=== PATIENT | female | born 1985 | race Caucasian/White ===

== ENCOUNTER 2019-05-11 00:26 | Inpatient (IN) | payer SELFPAY ==
[2019-05-11] VITALS (42 sets, daily range): BP systolic 75–152; BP diastolic 36–77; PULSE 62–160; RESP 14–32; TEMP 36.1–37; O2SAT 94–100; BMI 22.4; BMI 23.1
--- NOTE | 2019-05-11 02:04 | ED.DCSUM_ITS ---
History of Present Illness Chief Complaint: Substance Abuse Narrative: This patient is a 34-year-old female who presents with narcotic withdrawal. She has been using fentanyl daily for about 2 months. Her last use was Wednesday. She complains of about 2 days of severe nausea and vomiting. She has been unable to tolerate anything by mouth. She also complains of crampy abdominal pain diarrhea sweats rhinorrhea. She complains of gooseflesh. She has a history of hepatitis C but denies any other medical history. Past Medical History - Allergies and Home Meds Allergies/Adverse Reactions: Allergies No Known Allergies Allergy (Verified 05/11/19 00:27) Primary Care Physician: [facility] Doctor,Out of [NON-STAFF] - Past Medical History: - - Fentanyl abuse, hepatitis C Smoking Status: Current every day smoker Review of Systems All systems negative except as indicated General: Denies: Fever ENT: Reports: Rhinorrhea Cardiovascular: Denies: Chest pain Respiratory: Denies: Dyspnea Gastrointestinal: Reports: Abdominal pain, Nausea, Vomiting, Diarrhea Musculoskeletal: Reports: Myalgias Physical Exam Vital Signs/Narrative: Vital Signs Temp Pulse Resp BP Pulse Ox 05/11/19 00:29 98.4 F 98 18 152/69 H 99 Inital Vital Signs reviewed: Yes General: Well nourished Head: Normocephalic Eyes: EOMI ENT: Dry mucous membranes Neck: Supple Cardiovascular: Regular rhythm, Tachycardia Respiratory: No distress, CTA bilaterally Abdomen: Soft, Tender. Negative for: Guarding, Rebound tenderness Skin: Normal color Neurological: Alert Psychological: Normal affect Diagnostic/Tx/Re-eval Laboratory Results 05/11/19 05/11/19 05/11/19 02:00 02:20 02:20 WBC 7.1 RBC 4.90 Hgb 14.4 Hct 42.0 MCV 85.7 MCH 29.4 MCHC 34.3 RDW Std Deviation 39.0 RDW Coeff of Marnie 12.4 Plt Count 161 MPV 9.6 Immature Gran % (Auto) 0.300 Neut % (Auto) 77.7 H Lymph % (Auto) 14.7 L [place] % (Auto) 6.9 Eos % (Auto) 0.1 Baso % (Auto) 0.3 Absolute Neuts (auto) 5.5 Absolute Lymphs (auto) 1.04 Nucleated RBC % 0 Sodium 139 Potassium 3.8 Chloride 107 Carbon Dioxide 28.0 Anion Gap 4 L BUN 6 L Creatinine 0.66 Estim Creat Clear Calc 126.70 Est GFR (MDRD) Af Amer 133 Est GFR (MDRD) Non-Af 110 BUN/Creatinine Ratio 9.1 L Glucose 110 H Calcium 8.8 Total Bilirubin 0.80 AST 191 H ALT 159 H Alkaline Phosphatase 92 Total Protein 7.2 Albumin 3.5 Globulin 3.7 Albumin/Globulin Ratio 0.9 Urine Opiates Screen NEGATIVE Urine Methadone Screen NEGATIVE Ur Barbiturates Screen NEGATIVE Ur Phencyclidine Scrn NEGATIVE Ur Amphetamines Screen NEGATIVE U Methamphetamin-MDMA NEGATIVE U Benzodiazepines Scrn POSITIVE H Urine Cocaine Screen NEGATIVE U Cannabinoids Screen NEGATIVE Ur Drug Screen Comment Ethyl Alcohol 05/11/19 02:20 WBC RBC Hgb Hct MCV MCH MCHC RDW Std Deviation RDW Coeff of Marnie Plt Count MPV Immature Gran % (Auto) Neut % (Auto) Lymph % (Auto) [place] % (Auto) Eos % (Auto) Baso % (Auto) Absolute Neuts (auto) Absolute Lymphs (auto) Nucleated RBC % Sodium Potassium Chloride Carbon Dioxide Anion Gap BUN Creatinine Estim Creat Clear Calc Est GFR (MDRD) Af Amer Est GFR (MDRD) Non-Af BUN/Creatinine Ratio Glucose Calcium Total Bilirubin AST ALT Alkaline Phosphatase Total Protein Albumin Globulin Albumin/Globulin Ratio Urine Opiates Screen Urine Methadone Screen Ur Barbiturates Screen Ur Phencyclidine Scrn Ur Amphetamines Screen U Methamphetamin-MDMA U Benzodiazepines Scrn Urine Cocaine Screen U Cannabinoids Screen Ur Drug Screen Comment Ethyl Alcohol 7.0 - Medical Decision Making Patient was symptomatically treated with IV fluids, Phenergan, Toradol, Bentyl. Labs notable for elevated transaminases. She does have a history of hepatitis C. Work-up otherwise unremarkable except benzodiazepines on a urine drug screen. Her CINA score is 17. She does meet criteria for hospitalization. Patient to be discussed with the hospitalist and admitted. ED Disposition - Plan for ED Patient: Disposition: Acute Care Hospital [facility] Diagnosis: Narcotic withdrawal Referrals: [facility] Doctor,Out of [NON-STAFF] -
[2019-05-11 02:27] LABS: Absolute Lymphocyte Count 1.04 X10^3/uL (0.83-4.51); Absolute Neutrophil Count 5.5 X10^3/uL (2.0-7.7); Basophil# 0.02 X10^3/uL; Basophil% 0.3 % (0-1); Eosinophil# 0.01 X10^3/uL; Eosinophils% 0.1 % (0-5); Hemoglobin 14.4 g/dL (12.0-15.0); Lymphocyte # 1.04 X10^3/ul (4.0); Lymphocyte % 14.7 % (19-41); Mean Corp Hgb Conc 34.3 g/dL (32-36); Mean Corpuscular Hgb 29.4 pg (27.0-32.0); Mean Corpuscular Volume 85.7 fL (81-99); Mean Platelet Vol. 9.6 fl (6.2-12.0); Monocyte# 0.49 X10^3/uL; Monocyte% 6.9 % (0-10); NRBC Flagged by Analyzer 0 % (0-5); Neutrophil # 5.49 X10^3/uL (2.7-7.7); Neutrophil % 77.7 % (47-70); Platelet Count 161 K/mm3 (150-450); RBC Distribution Width CV 12.4 % (11.6-14.6); White Blood Count 7.1 K/mm3 (4.4-11.0)
[2019-05-11 02:30] LABS: Vista UDS pH Range 7
[2019-05-11 02:39] LABS: Amphetamine Urine VISTA NEGATIVE (<1000 ng/mL); Barbiturate Urine VISTA NEGATIVE (< 200 ng/mL); Benzodiazepine Urine VISTA POSITIVE (< 200 ng/mL); Cocaine Urine VISTA NEGATIVE (< 300 ng/mL); Ecstacy Urine VISTA NEGATIVE (< 500 ng/mL); Methadone Urine VISTA NEGATIVE (< 300 ng/mL); PCP Urine VISTA NEGATIVE (< 25 ng/mL); THC Urine VISTA NEGATIVE (< 50 ng/mL)
[2019-05-11 02:40] LABS: ALB/GLOB Ratio 0.9 RATIO (0.9-2.4); AST(SGOT) 191 U/L (15-37); Alanine Aminotransfer ALT/SGPT 159 U/L (13-56); Albumin, Serum 3.5 g/dL (3.2-5.0); Alkaline Phosphatase 92 U/L (45-117); Anion Gap 4 (5-15); BUN 6 mg/dL (7-18); BUN/Creat Ratio 9.1 RATIO (10-20); Calcium,Total 8.8 mg/dL (8.5-10.1); Chloride 107 mmol/L (98-107); Creatinine, Serum 0.66 mg/dL (0.55-1.02); EST Glomerular Filtration Rate 110 mL/min (>60); Est Glom Filt Rate - Afr Amer 133 mL/min (>60); Globulin 3.7 g/dL (2.2-4.2); Glucose 110 mg/dL (74-106); Potassium 3.8 mmol/L (3.5-5.1); Protein, Total 7.2 g/dL (6.4-8.2); Sodium Level 139 mmol/L (136-145)
[2019-05-11] MEDS: Ketorolac 30 MG/ML Syringe IV (02:52)
[2019-05-11] MEDS: proMETHazine 25 MG/ML Syringe 12.5 MG IV (02:52)
[2019-05-11] MEDS: Dicyclomine 20 MG/2 ML Vial IM (02:52)
[2019-05-11] MEDS: 0.9% Normal Saline 1,000 ML 1000 ML IV (02:55)
--- NOTE | 2019-05-11 03:06 | HP.PCM_ITS ---
Problem List (1) Narcotic withdrawal Status: Acute History of Present Illness Date of Admission: 05/11/19 Chief Complaint: opioid withdrawal The patient is a 34 year old F with a significant history of hepatitis C infection; tobacco abuse; and opioid dependence who presented because of withdrawal symptoms. Patient reports that she uses a combination of fentanyl and heroin. She is about half a gram a day. She snorts. The last time she used was 2 days ago prior to presentation. Her symptoms started about 1 day prior to presentation. She describes her symptoms as nausea and vomiting; diarrhea; loss of appetite; abdominal pain; confusion; chills and goosebumps. Her CINA score at the emergency department was 17. Past Medical History Medical History: Medical History (Last Updated 05/11/19 @ 03:45 by Ross Stern MD) Narcotic abuse F11.10 Tobacco abuse Z72.0 Allergies No Known Allergies Allergy (Verified 05/11/19 00:27) Home Medications: Ambulatory Orders Medication Instructions Recorded NK 05/11/19 Surgical History: no surgical history Lives: Spouse/ Significant Other Smoking Status: Current every day smoker Tobacco Use: Cigarettes Drugs: Heroin, - - Fentanyl - *Family History Maternal History Items: Cancer, - - Drug abuse Paternal History Items: Diabetes Review of Systems Constitutional: Reports: Chills. Denies: Fever, Weight Change HEENT: Reports: Sinus Drainage. Denies: Head Aches, Sinus Congestion Cardiovascular: Denies: Chest Pain, Palpitations Respiratory: Denies: Cough, Shortness of breath at rest, Sputum production Gastrointestinal: Reports: Abdominal Pain, Diarrhea, Nausea, Vomiting Genitourinary: Denies: Dysuria Musculoskeletal: Denies: Joint Pain, Joint Tenderness Skin: Denies: Rash, Wounds Neurological: Denies: Numbness, Tingling, Focal weakness Psychiatric: Reports: Anxiety, Depression. Denies: Homicidal Ideations, Suicidal Ideations Hematologic/ Lymphatic: Denies: Easy Bruising, Easy Bleeding VTE Information - Inpt Only VTE Present on Admission: No VTE Mechan Device Prophylaxis: None VTE Pharm Prophylaxis ordered?: No Reason prophylaxis not ordered:: Treatment Not Indicated - Low risk Patient Problems: Active and Suspected Problems (Last Updated 05/11/19 @ 03:45 by Ross Stern MD) Narcotic withdrawal (Acute) - Physical Exam General: Alert, Oriented x3, Cooperative HEENT: Atraumatic, PERRLA, EOMI, Normocephalic Neck: Supple, No JVD, Negative Carotid Bruits Lungs: Clear to auscultation, Normal air movement Cardiovascular: Regular rate, No murmurs Abdomen: Bowel Sounds Present, Soft, Non Tender Extremities: No edema, Capillary Refill Less than 3 Seconds Skin: No rashes, No breakdown Musculoskeletal: No Tenderness to Palpation of Joints or Extremities Neurological: Cranial nerves II-XII grossly intact, - - Patient noted to be elias ing. Psych/Mental Status: Normal Affect, Appropriate Vital Signs Temp Pulse Resp BP Pulse Ox 98.4 F 98 18 152/69 H 99 05/11/19 00:29 05/11/19 00:29 05/11/19 00:29 05/11/19 00:05/11/19 00:29 Oxygen Delivery Method Room Air Weight: 68.9 kg Body Mass Index (BMI) 22.4 Laboratory Tests Past 24 Hrs 05/11/19 05/11/19 05/11/19 02:00 02:20 02:20 WBC 7.1 RBC 4.90 Hgb 14.4 Hct 42.0 MCV 85.7 MCH 29.4 MCHC 34.3 RDW Std Deviation 39.0 RDW Coeff of Marnie 12.4 Plt Count 161 MPV 9.6 Immature Gran % (Auto) 0.300 Neut % (Auto) 77.7 H Lymph % (Auto) 14.7 L [place] % (Auto) 6.9 Eos % (Auto) 0.1 Baso % (Auto) 0.3 Absolute Neuts (auto) 5.5 Absolute Lymphs (auto) 1.04 Nucleated RBC % 0 Sodium 139 Potassium 3.8 Chloride 107 Carbon Dioxide 28.0 Anion Gap 4 L BUN 6 L Creatinine 0.66 Estim Creat Clear Calc 126.70 Est GFR (MDRD) Af Amer 133 Est GFR (MDRD) Non-Af 110 BUN/Creatinine Ratio 9.1 L Glucose 110 H Calcium 8.8 Total Bilirubin 0.80 AST 191 H ALT 159 H Alkaline Phosphatase 92 Total Protein 7.2 Albumin 3.5 Globulin 3.7 Albumin/Globulin Ratio 0.9 Urine Opiates Screen NEGATIVE Urine Methadone Screen NEGATIVE Ur Barbiturates Screen NEGATIVE Ur Phencyclidine Scrn NEGATIVE Ur Amphetamines Screen NEGATIVE U Methamphetamin-MDMA NEGATIVE U Benzodiazepines Scrn POSITIVE H Urine Cocaine Screen NEGATIVE U Cannabinoids Screen NEGATIVE Ur Drug Screen Comment Ethyl Alcohol 05/11/19 02:20 WBC RBC Hgb Hct MCV MCH MCHC RDW Std Deviation RDW Coeff of Marnie Plt Count MPV Immature Gran % (Auto) Neut % (Auto) Lymph % (Auto) [place] % (Auto) Eos % (Auto) Baso % (Auto) Absolute Neuts (auto) Absolute Lymphs (auto) Nucleated RBC % Sodium Potassium Chloride Carbon Dioxide Anion Gap BUN Creatinine Estim Creat Clear Calc Est GFR (MDRD) Af Amer Est GFR (MDRD) Non-Af BUN/Creatinine Ratio Glucose Calcium Total Bilirubin AST ALT Alkaline Phosphatase Total Protein Albumin Globulin Albumin/Globulin Ratio Urine Opiates Screen Urine Methadone Screen Ur Barbiturates Screen Ur Phencyclidine Scrn Ur Amphetamines Screen U Methamphetamin-MDMA U Benzodiazepines Scrn Urine Cocaine Screen U Cannabinoids Screen Ur Drug Screen Comment Ethyl Alcohol 7.0 Assessment/Plan All Active Problems (Last Updated 05/11/19 @ 03:45 by Ross Stern MD) Narcotic withdrawal (Acute) The patient is a 34 year old F with a significant history of tobacco abuse; and opioid dependence who presented because of withdrawal symptoms. Narcotic dependence and withdrawal We will put patient opioid withdrawal protocol with Buprenorphine and other adjunctive medication. Counselled Tobacco abuse Counselled Nicotine patch ordered. Hepatitis C infection. Noted to have elevated liver enzymes. Likely due to history of hepatitis C infection. DVT Prophylaxis Subcutaneous heparin Code Visit Inpatient E&M: 12972 Init Hosp L3
[2019-05-11] MEDS: Buprenorphine HCl 2 MG TAB.SUBL 4 MG SL (04:30)
[2019-05-11] MEDS: 0.9% NaCl IVPB Med Flush (250 mL) 15 ML IV ×2 (04:35→11:34)
--- NOTE | 2019-05-11 04:52 | NURSING ---
Pt bed exit alarming, pt on her way to the bathroom. Pt reminded to use call light for assistance. Seizure pads applied d/t history of seizure in the past.
--- NOTE | 2019-05-11 05:28 | NURSING ---
Patient found by manager protein with seizure like activity,COMPENSATION SPECIALIST called, see COMPENSATION SPECIALIST documentation.
[2019-05-11] MEDS: 0.9% NaCl Peripheral Flush Adult/Peds IV ×2 (05:35→09:10)
[2019-05-11 05:36] LABS: Bedside Glucose 108 mg/dL (70-110)
[2019-05-11] MEDS: LORazepam 2 MG/ML Syringe (05:37)
[2019-05-11] MEDS: Haloperidol Lactate 5 MG/ML Vial 2 MG IV (05:44)
[2019-05-11] MEDS: Ziprasidone IM 20 MG/ML VIAL 10 MG IM ×2 (05:52→08:22)
[2019-05-11] MEDS: LORazepam 2 MG/ML Syringe IV ×3 (06:00→08:30)
--- NOTE | 2019-05-11 06:20 | NURSING ---
PT received in ICU , remains combative. Dr Grimm at bedside.
--- NOTE | 2019-05-11 06:30 | NURSING ---
Dr Grimm remains at bedside, placed in 4 point soft restraints per Dr Grimm.
--- NOTE | 2019-05-11 06:36 | PCM.RRT.NO ---
Rapid Response Note Rapid response note: Per nursing team patient appeared to be having twitches and was staring. Nurses thought patient might have had a seizure especially as patient reported to her nurse that in the past she had a seizure. Thereafter patient was very combative moving all extremities. Patient Problems: Active and Suspected Problems (Last Updated 05/11/19 @ 03:45 by Ross Stern MD) Narcotic withdrawal (Acute) - Physical Exam General: Alert, Confused, Non-Cooperative HEENT: Atraumatic Neck: Supple Lungs: - - Was not assessed Cardiovascular: Tachycardic Abdomen: - - Was not assessed Extremities: No clubbing, No cyanosis, No edema Skin: No rashes Musculoskeletal: - - Patient agitated and moving no all extremities. Neurological: - - Patient was agitated and moving all extremities. Psych/Mental Status: Agitated Vital Signs Temp Pulse Resp BP Pulse Ox 98.5 F 71 14 115/58 L 97 05/11/19 03:27 05/11/19 03:27 05/11/19 03:27 05/11/19 03:27 05/11/19 03:27 Oxygen Delivery Method Room Air Weight: 71 kg Body Mass Index (BMI) 23.1 Intake and Output for Last 24 Hours 05/09/19 05/10/19 05/11/19 23:59 23:59 23:59 Intake Total 1050 / 1050 Balance 1050 / 1050 Laboratory Tests Past 24 Hrs 05/11/19 05/11/19 05/11/19 02:00 02:20 02:20 WBC 7.1 RBC 4.90 Hgb 14.4 Hct 42.0 MCV 85.7 MCH 29.4 MCHC 34.3 RDW Std Deviation 39.0 RDW Coeff of Marnie 12.4 Plt Count 161 MPV 9.6 Immature Gran % (Auto) 0.300 Neut % (Auto) 77.7 H Lymph % (Auto) 14.7 L [place] % (Auto) 6.9 Eos % (Auto) 0.1 Baso % (Auto) 0.3 Absolute Neuts (auto) 5.5 Absolute Lymphs (auto) 1.04 Nucleated RBC % 0 Sodium 139 Potassium 3.8 Chloride 107 Carbon Dioxide 28.0 Anion Gap 4 L BUN 6 L Creatinine 0.66 Estim Creat Clear Calc 126.70 Est GFR (MDRD) Af Amer 133 Est GFR (MDRD) Non-Af 110 BUN/Creatinine Ratio 9.1 L Glucose 110 H Calcium 8.8 Total Bilirubin 0.80 AST 191 H ALT 159 H Alkaline Phosphatase 92 Total Protein 7.2 Albumin 3.5 Globulin 3.7 Albumin/Globulin Ratio 0.9 Urine Opiates Screen NEGATIVE Urine Methadone Screen NEGATIVE Ur Barbiturates Screen NEGATIVE Ur Phencyclidine Scrn NEGATIVE Ur Amphetamines Screen NEGATIVE U Methamphetamin-MDMA NEGATIVE U Benzodiazepines Scrn POSITIVE H Urine Cocaine Screen NEGATIVE U Cannabinoids Screen NEGATIVE Ur Drug Screen Comment Ethyl Alcohol 05/11/19 02:20 WBC RBC Hgb Hct MCV MCH MCHC RDW Std Deviation RDW Coeff of Marnie Plt Count MPV Immature Gran % (Auto) Neut % (Auto) Lymph % (Auto) [place] % (Auto) Eos % (Auto) Baso % (Auto) Absolute Neuts (auto) Absolute Lymphs (auto) Nucleated RBC % Sodium Potassium Chloride Carbon Dioxide Anion Gap BUN Creatinine Estim Creat Clear Calc Est GFR (MDRD) Af Amer Est GFR (MDRD) Non-Af BUN/Creatinine Ratio Glucose Calcium Total Bilirubin AST ALT Alkaline Phosphatase Total Protein Albumin Globulin Albumin/Globulin Ratio Urine Opiates Screen Urine Methadone Screen Ur Barbiturates Screen Ur Phencyclidine Scrn Ur Amphetamines Screen U Methamphetamin-MDMA U Benzodiazepines Scrn Urine Cocaine Screen U Cannabinoids Screen Ur Drug Screen Comment Ethyl Alcohol 7.0 POC Glucose 05/11/19 05:29 POC Glucose 108 Assessment/Plan All Active Problems (Last Updated 05/11/19 @ 03:45 by Ross Stern MD) Narcotic withdrawal (Acute) The patient is a 34 year old F with a significant history of tobacco abuse; and opioid dependence who presented because of withdrawal symptoms. About 1 hour after Suboxone was giving patient was noted to have some twitches and staring followed by extreme combativeness and agitation.. Acute Psychosis Etiology unclear at this point. At 0537 patient received Ativan 2 mg IV At 0544 Haldol 2 mg IV was given. At 0552 Geodon 10 mg IM was given At 0600 Ativan 2 mg IV was given On toxicology screen at the ED only benzodiazepine was positive. All others were negative. Case was discussed with alteration tailor apprentice. The patient was transferred to intensive care unit with plan to start patient on Precedex. Discontinue all p.o. medications at this time and keep patient n.p.o. for now; and bed rest.
--- NOTE | 2019-05-11 09:11 | NURSING ---
0730 pt sitting up in bed, screaming, trying to strike staff and banging her head/limbs against the bedrails. seizure pads in place. ICU staff x4 present in attempt to manage pt safety. 0745 pt cont to yell but no longer attempting to strike out. attempts to explain situation to pt met w/resistance. She states just give it to me, use my foot, let me out, using foul language. Also much mumbled unintelligible speech. 0800 pt sitting up in bed, pulling at all restraints, kicking out and attempting to bite/spit at staff, ICU RNs attempting to maintain IV access. ICU staff x5 required to maintain pt/staff safety. Dr. Grimm texted update. 0810 Dr. Grimm present in pt room, orders recd 0820 no change in pt condition. IV access lost 0822 Geodon IM given 0830 IV access achieved, requiring multiple ICU staff including Dr. Grimm. Precedex restarted. pt cont to scream and kick. Ativan IV given. 0840 pt restful, respers even/easy
--- NOTE | 2019-05-11 09:31 | PCM.CON.CC ---
Problem List (1) Narcotic withdrawal Status: Acute Capacity - Capacity Assessment Tool Can the patient make a choice & communicate that choice?: No Can the patient understand benefits, risks and alternatives?: No Can the patient make a logical, rational choice?: No Is the choice the patient makes consistent w/ their values?: No Is there an impending, emergent risk to the patient?: Comment - Patient has received significant medications for behavior control Does the patient have an Advance Directive?: Unable to Determine Is there a Surrogate Available?: Comment - Social work to attempt to contact next of kin i.e. HCPOA: Unable to Determine i.e. close relative (spouse, child, parent, sibling)?: Unable to Determine Reason for Consult Date of Consultation: 05/11/19 Reason for Consultation: Narcotic withdrawal History of Present Illness: The patient is a 34 year old F, with a past medical history significant for tobacco abuse and hepatitis C, who presented to [facility] on 05/11/2019 secondary to severe nausea and vomiting. Patient reportedly had been using fentanyl daily for 2 months and went has been unable to tolerate anything by mouth after discontinuation of opiates on Wednesday. Patient had reported some crampy abdominal pain, diarrhea, sweats and rhinorrhea to the ER staff. While in the ER, patient was noted to be hypertensive with dry mucous membranes, but otherwise was relatively unremarkable. Patient's laboratory work-up was relatively unremarkable except for negative opiate screen, positive benzodiazepines and an alcohol level. Patient reportedly had denied alcohol use to staff. At approximately 7 AM, patient was brought to the intensive care unit after rapid response was called for aggressive behavior. At that time, patient had received 10 of Geodon, 4 of Ativan, 2 of Haldol and there was some concern for a need for Precedex. On arrival to the intensive care unit, patient was thrashing about in the bed. Patient was trying to hit the staff and spit. Patient was not responding to verbal direction. Patient was unable to tell me her name or her current location. Patient was not able to provide a review of systems. Patient was not able to name a next of kin. Since being in the intensive care unit, patient has continued to be aggressive with staff. Patient has received an additional 10 mg of Geodon, 4 mg of Ativan, in addition to the Precedex drip at 1.2. Patient has been placed in four-point restraints for now. Past Medical History Medical History: Medical History (Last Updated 05/11/19 @ 03:45 by Ross Stern MD) Narcotic abuse F11.10 Tobacco abuse Z72.0 Allergies No Known Allergies Allergy (Verified 05/11/19 00:27) Home Medications: Ambulatory Orders Medication Instructions Recorded NK 05/11/19 Surgical History: no surgical history Lives: Spouse/ Significant Other Smoking Status: Current every day smoker Tobacco Use: Cigarettes Drugs: Heroin, - - Fentanyl - *Family History Maternal History Items: Cancer, - - Drug abuse Paternal History Items: Diabetes Review of Systems Unable to obtain accurate/complete ROS d/t: See HPI Patient Problems: Active and Suspected Problems (Last Updated 05/11/19 @ 03:45 by Ross Stern MD) Narcotic withdrawal (Acute) - Physical Exam General: Confused, Disoriented, - - Aggressive with staff HEENT: Atraumatic, PERRLA, EOMI, Normocephalic, - - Scleral injection without icterus Oral: No Gingival or Mucosal Lesions/ Ulcerations, Dry Mucosa Neck: Supple, No JVD, No Nodes, Trachea Midline Lungs: Clear to auscultation, Normal air movement, No rhonchi, No wheeze, No rales Cardiovascular: Normal S1, Normal S2, No murmurs, No rub noted, No Gallop, Tachycardic Abdomen: Bowel Sounds Present, Soft, Non Tender, Non-Distended, Obese Extremities: No clubbing, No cyanosis, No edema Skin: - - Some tattoos noted. No rashes appreciated Musculoskeletal: No Tenderness to Palpation of Joints or Extremities Lymphatic: No Cervical, Supraclavicular, or Inguinal Adenopathy Neurological: Cranial nerves II-XII grossly intact, Neuro grossly intact, - - Spontaneous movement of all extremities. Sensation appears to be intact. Psych/Mental Status: Agitated, Anxious, Impulsive Vital Signs Temp Pulse Resp BP Pulse Ox 36.1 C L 95 19 H 137/75 H 96 05/11/19 06:33 05/11/19 07:00 05/11/19 07:00 05/11/19 07:00 05/11/19 07:00 Oxygen Delivery Method Room Air Weight: 71 kg Body Mass Index (BMI) 23.1 Intake and Output for Last 24 Hours 05/09/19 05/10/19 05/11/19 23:59 23:59 23:59 Intake Total 1087.98 / 1087.98 Balance 1087.98 / 1087.98 Laboratory Tests Past 24 Hrs 05/11/19 05/11/19 05/11/19 02:00 02:20 02:20 WBC 7.1 RBC 4.90 Hgb 14.4 Hct 42.0 MCV 85.7 MCH 29.4 MCHC 34.3 RDW Std Deviation 39.0 RDW Coeff of Marnie 12.4 Plt Count 161 MPV 9.6 Immature Gran % (Auto) 0.300 Neut % (Auto) 77.7 H Lymph % (Auto) 14.7 L [place] % (Auto) 6.9 Eos % (Auto) 0.1 Baso % (Auto) 0.3 Absolute Neuts (auto) 5.5 Absolute Lymphs (auto) 1.04 Nucleated RBC % 0 Sodium 139 Potassium 3.8 Chloride 107 Carbon Dioxide 28.0 Anion Gap 4 L BUN 6 L Creatinine 0.66 Estim Creat Clear Calc 126.70 Est GFR (MDRD) Af Amer 133 Est GFR (MDRD) Non-Af 110 BUN/Creatinine Ratio 9.1 L Glucose 110 H Calcium 8.8 Total Bilirubin 0.80 AST 191 H ALT 159 H Alkaline Phosphatase 92 Total Protein 7.2 Albumin 3.5 Globulin 3.7 Albumin/Globulin Ratio 0.9 Urine Opiates Screen NEGATIVE Urine Methadone Screen NEGATIVE Ur Barbiturates Screen NEGATIVE Ur Phencyclidine Scrn NEGATIVE Ur Amphetamines Screen NEGATIVE U Methamphetamin-MDMA NEGATIVE U Benzodiazepines Scrn POSITIVE H Urine Cocaine Screen NEGATIVE U Cannabinoids Screen NEGATIVE Ur Drug Screen Comment Ethyl Alcohol 05/11/19 02:20 WBC RBC Hgb Hct MCV MCH MCHC RDW Std Deviation RDW Coeff of Marnie Plt Count MPV Immature Gran % (Auto) Neut % (Auto) Lymph % (Auto) [place] % (Auto) Eos % (Auto) Baso % (Auto) Absolute Neuts (auto) Absolute Lymphs (auto) Nucleated RBC % Sodium Potassium Chloride Carbon Dioxide Anion Gap BUN Creatinine Estim Creat Clear Calc Est GFR (MDRD) Af Amer Est GFR (MDRD) Non-Af BUN/Creatinine Ratio Glucose Calcium Total Bilirubin AST ALT Alkaline Phosphatase Total Protein Albumin Globulin Albumin/Globulin Ratio Urine Opiates Screen Urine Methadone Screen Ur Barbiturates Screen Ur Phencyclidine Scrn Ur Amphetamines Screen U Methamphetamin-MDMA U Benzodiazepines Scrn Urine Cocaine Screen U Cannabinoids Screen Ur Drug Screen Comment Ethyl Alcohol 7.0 POC Glucose 05/11/19 05:29 POC Glucose 108 Assessment/Plan Active and Suspected Problems (Last Updated 05/11/19 @ 03:45 by Ross Stern MD) Narcotic withdrawal (Acute) RECOMMENDATIONS: 1. Ativan as needed for agitation 2. Hold on any further Geodon or Haldol 3. Continue Precedex drip 4. Attempt to discontinue four-point restraints 5. Attempt to contact next of kin IMPRESSIONS: 1. Toxic encephalopathy Unclear etiology at this time. Patient reportedly uses fentanyl at baseline, but opiates were negative on tox screen. Patient is positive for alcohol and benzodiazepines. Patient has received Geodon and Haldol, but QT has been prolonging with therapy. Will attempt to avoid any further Geodon or Haldol therapy. We will continue to use Ativan. Patient is in four-point restraints at this time, but these will be attempted for discontinuation. Patient remains on Precedex therapy. 2. Acute substance withdrawal Unclear if patient was truthful on presentation with substance abuse. Patient reportedly does not use alcohol at all, but had a positive alcohol level. Patient also had denied any benzodiazepine use, but this was positive on the tox screen. Opiates were not noted. Patient did receive some Suboxone, but will hold off on continuation for now. Patient's prolonged QT is concerning, so will avoid further Haldol or Geodon therapy. 3. Hepatitis C/poor history Complicates care, management, recovery and prognosis. Social work is attempting to contact next of kin. Patient is not able to make medical decisions at this time in my opinion. Patient does have a slight elevation of liver enzymes, but metabolic function appears to be intact with an albumin and total protein within normal limits. TIME: 35 minutes critical care time spent addressing patient's acute withdrawal, review of all data and collaboration with care team (7 AM to 9 AM) Code Visit 9xxxx: [id number] Critical care first hour
--- NOTE | 2019-05-11 10:00 | CASEMGMT ---
Addendum entered by Joellen Morrissey 05/11/19 10:16: WOO called [employer] to see if she may be familiar to them and have family information. They have no contact information for this pt. TALI Carrero Original Note: Pt here in ICU, not able to speak w/staff at present, and no family is listed on the demographics. Pt has not been here before. Pt does not have a PCP listed. SW called [facility] to inquire if pt has any contact information on file there, they have no record of this pt. SW called [facility], they did have a number of [phone]. SW called this number, it is out of order. WOO did a Google search for pt in attempt to find anyone listed that may be a relative, no results found. WOO called Javy Palafox listed on face sheet, who does know pt but has no family contact information for pt. Javy plans to come see pt today. TALI Carrero
--- NOTE | 2019-05-11 11:56 | NURSING ---
update from [facility], unable to locate any family members.
--- NOTE | 2019-05-11 14:30 | NURSING ---
pt states she has a sister in [place] who is watching her children and that she and her boyfriend came to [place] to look for work. She also states she does not want her sister notified of her hospitalization.
--- NOTE | 2019-05-11 16:42 | NURSING ---
Carmita w/ Gertrude VARGAS re: post hospitalization meds/referrals. If pt is interested in local assistance, make a referral to [facility] immediately following hospital discharge.
[2019-05-11] MEDS: Buprenorphine HCl 2 MG TAB.SUBL SL (18:10)
--- NOTE | 2019-05-11 20:06 | CCHN_ITS ---
Hospitalist Note Patient was seen and examined today briefly in the ICU, I discussed her medical care with critical care, critical care requested the patient be placed on withdrawal treatment for her opiates with either buprenorphine or Librium (these are our protocols here). I placed the patient on buprenorphine today. The time of my examination, patient does not appear to be agitated or restless, she states she moved from [place] and does not have a physician here. 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
[2019-05-12] VITALS (20 sets, daily range): BP systolic 97–120; BP diastolic 54–75; PULSE 60–71; RESP 10–31; TEMP 36–37; O2SAT 93–98
[2019-05-12] MEDS: Buprenorphine HCl 2 MG TAB.SUBL SL ×3 (01:21→17:25)
[2019-05-12 06:30] LABS: AST(SGOT) 277 U/L (15-37); Alanine Aminotransfer ALT/SGPT 174 U/L (13-56); Albumin, Serum 3.3 g/dL (3.2-5.0); Alkaline Phosphatase 80 U/L (45-117); Anion Gap 8 (5-15); BUN 18 mg/dL (7-18); BUN/Creat Ratio 24.7 RATIO (10-20); Calcium,Total 8.3 mg/dL (8.5-10.1); Chloride 111 mmol/L (98-107); Creatinine, Serum 0.73 mg/dL (0.55-1.02); EST Glomerular Filtration Rate 98 mL/min (>60); Est Glom Filt Rate - Afr Amer 118 mL/min (>60); Estimated Creatinine Clearance 114.55 ml/min; Globulin 3.4 g/dL (2.2-4.2); Glucose 80 mg/dL (74-106); Potassium 3.8 mmol/L (3.5-5.1); Protein, Total 6.7 g/dL (6.4-8.2); Sodium Level 144 mmol/L (136-145)
--- NOTE | 2019-05-12 07:13 | PN_ITS ---
Subjective: Patient did well overnight. Precedex did not need to be reinitiated. Patient has no recollection of yesterday. Patient was able to clarify this morning that she has not had seizures except for during withdrawal. Patient does not take antiepileptics at baseline. Patient did clarify that she was given Xanax to deal with her recovery, but does not take these normally. Patient does report generalized body aches, but no nausea, vomiting or abdominal pain is reported. General: Alert, Oriented x3, Cooperative, No apparent distress, Well developed, Well nourished, - - Appears older than stated age. No conversational dyspnea. HEENT: Atraumatic, PERRLA, EOMI, Normocephalic, - - No scleral icterus or injection noted. Oral: Moist Mucosa, No Gingival or Mucosal Lesions/ Ulcerations Neck: Supple, No JVD, No Nodes, Trachea Midline Lungs: Clear to auscultation, Normal air movement, No rhonchi, No wheeze, No rales Cardiovascular: Regular rate, Regular Rhythm, Normal S1, Normal S2, No murmurs, No rub noted, No Gallop Abdomen: Bowel Sounds Present, Soft, Non Tender, Non-Distended Extremities: No clubbing, No cyanosis, No edema Skin: No rashes, No breakdown, - - No bruising appreciated. Musculoskeletal: No Tenderness to Palpation of Joints or Extremities Lymphatic: No Cervical, Supraclavicular, or Inguinal Adenopathy Neurological: Cranial nerves II-XII grossly intact, Neuro grossly intact, Motor Exam 5/5 strength throughout Psych/Mental Status: Alert and oriented to time, place, person, mood and affect Vital Signs Temp Pulse Resp BP Pulse Ox 36.6 C 71 17 105/54 L 97 05/12/19 00:00 05/12/19 06:00 05/12/19 06:00 05/12/19 06:00 05/12/19 06:00 Oxygen Delivery Method Room Air Weight: 72 kg Body Mass Index (BMI) 23.1 Intake and Output for Last 24 Hours 05/10/19 05/11/19 05/12/19 23:59 23:59 23:59 Intake Total 1502.74 / 1838.49 556.50 / 556.50 Output Total 725 / 1025 500 / 500 Balance 777.74 / 813.49 56.50 / 56.50 Labs (Last 48 Hours) 05/11/19 05/11/19 05/11/19 02:00 02:20 02:20 WBC 7.1 RBC 4.90 Hgb 14.4 Hct 42.0 MCV 85.7 MCH 29.4 MCHC 34.3 RDW Std Deviation 39.0 RDW Coeff of Marnie 12.4 Plt Count 161 MPV 9.6 Immature Gran % (Auto) 0.300 Neut % (Auto) 77.7 H Lymph % (Auto) 14.7 L [place] % (Auto) 6.9 Eos % (Auto) 0.1 Baso % (Auto) 0.3 Absolute Neuts (auto) 5.5 Absolute Lymphs (auto) 1.04 Nucleated RBC % 0 Sodium 139 Potassium 3.8 Chloride 107 Carbon Dioxide 28.0 Anion Gap 4 L BUN 6 L Creatinine 0.66 Estim Creat Clear Calc 126.70 Est GFR (MDRD) Af Amer 133 Est GFR (MDRD) Non-Af 110 BUN/Creatinine Ratio 9.1 L Glucose 110 H Calcium 8.8 Total Bilirubin 0.80 AST 191 H ALT 159 H Alkaline Phosphatase 92 Total Protein 7.2 Albumin 3.5 Globulin 3.7 Albumin/Globulin Ratio 0.9 Urine Opiates Screen NEGATIVE Urine Methadone Screen NEGATIVE Ur Barbiturates Screen NEGATIVE Ur Phencyclidine Scrn NEGATIVE Ur Amphetamines Screen NEGATIVE U Methamphetamin-MDMA NEGATIVE U Benzodiazepines Scrn POSITIVE H Urine Cocaine Screen NEGATIVE U Cannabinoids Screen NEGATIVE Ur Drug Screen Comment Ethyl Alcohol POC Glucose 05/11/19 05/11/19 05/12/19 02:20 05:29 06:00 WBC RBC Hgb Hct MCV MCH MCHC RDW Std Deviation RDW Coeff of Marnie Plt Count MPV Immature Gran % (Auto) Neut % (Auto) Lymph % (Auto) Kitt[place] % (Auto) Eos % (Auto) Baso % (Auto) Absolute Neuts (auto) Absolute Lymphs (auto) Nucleated RBC % Sodium 144 Potassium 3.8 Chloride 111 H Carbon Dioxide 25.0 Anion Gap 8 BUN 18 Creatinine 0.73 Estim Creat Clear Calc 114.55 Est GFR (MDRD) Af Amer 118 Est GFR (MDRD) Non-Af 98 BUN/Creatinine Ratio 24.7 H Glucose 80 Calcium 8.3 L Total Bilirubin 1.20 H AST 277 H ALT 174 H Alkaline Phosphatase 80 Total Protein 6.7 Albumin 3.3 Globulin 3.4 Albumin/Globulin Ratio 1.0 Urine Opiates Screen Urine Methadone Screen Ur Barbiturates Screen Ur Phencyclidine Scrn Ur Amphetamines Screen U Methamphetamin-MDMA U Benzodiazepines Scrn Urine Cocaine Screen U Cannabinoids Screen Ur Drug Screen Comment Ethyl Alcohol 7.0 POC Glucose 108 Medical Necessity - Tobacco Use Smoking Status: Current every day smoker Tobacco Use: Cigarettes Assessment/Plan All Active Problems (Last Updated 05/11/19 @ 03:45 by Ross Stern MD) Narcotic withdrawal (Acute) RECOMMENDATIONS: 1. Continue opiate withdrawal protocol 2. Increase activity as tolerated 3. Okay to transfer from the intensive care unit from my perspective 4. Hemodynamically stable on room air. Will sign off from a critical care perspective IMPRESSIONS: 1. Toxic encephalopathy Resolved. Unclear why patient was so combative yesterday. Patient has no recollection of the events. Unclear if patient had a seizure on the floor and this was an element of postictal aggression. Patient appears to be appropriate at this time. Mild increase in liver enzymes are not clinically significant. 2. Acute substance withdrawal Patient is much more appropriate at this time. Patient is reporting she did take a Xanax to deal with the withdrawal. This would account for the positive benzodiazepine. Patient does report generalized body aches. Unclear if this is secondary to strain from yesterday's aggression versus withdrawal symptoms. This can be treated symptomatically. 3. Hepatitis C/poor history Complicates care, management, recovery and prognosis. Patient is able to make medical decisions for herself at this time. Patient can be transferred out of the intensive care unit. Code Visit Inpatient E&M: 31288 Subs Hosp L2
--- NOTE | 2019-05-12 12:06 | CASEMGMT ---
Addendum entered by Joellen Morrissey 05/12/19 13:07: SW spoke w/Dr. Campbell, he asked about pt getting suboxone when she leaves here. SW spoke w/pt again to see if she is already in the suboxone program at [facility]. She is not but is hoping to start. SW had her sign a release so SW can call [facility] to see what is the next steps. SW faxed the release and then called [facility], spoke w/intake. Pt needs to have a clinical appointment next, and then get referred to the doctor for the suboxone program. SW was able to set up a clinical appt for pt for 05/17 at 11am w/Lorri. SW let physician know this information, also let pt know this information and gave her the information about the appointment. No further needs anticipated. TALI Carrero Original Note: Social Work Note Date and Time of Referral: 05/11/19, 9am Referred by: Physician and case management Date and Time of Intervention: 05/11/19(see yesterday's note) to find family, and 05/12/19, 11:30am Reason for Referral: find family and history of polysubstance abuse Informant: patient. Pt alert and oriented though sleepy and answers were brief. Personal Status: Living arrangements: Pt lives w/boyfriendarshana Palafox at address listed on demographics, just moved here from [place] two months ago Education/Literacy: Pt is able to read and write Employment: Unemployed. Moved here as boyfriend got a job at [employer]. THe is still working. Insurance: Pt has no insurance, had Medicaid in [place]. Family Dynamics/Relationships/Support: Pt states all family is in [place]. She has no support system here other than her boyfriend. Pt did give SW the name, address and phone number of her mother, this was added to the demographics in [employer]. Medical History and Functioning: Here for narcotic withdrawal. ADL's/DME: Pt fully independent Programs/Agencies involved: Pt has started to attend [facility]. SW encouraged pt to complete Medicaid application or call and start the process to get Medicaid. Application and phone number provided. SW let pt know if she completes the Medicaid application rather than calling, this SW can fax it in to [employer] for her. Substance Abuse history: Pt states uses fentanyl and heroin. She states was in a recovery program in the past and was clean for two years. She started using again when she moved to [place] two months ago. Mental Health history: Pt states she does have a history of anxiety and depression, has been on medication in the past. Pt states has not been in counseling. Pt states is feeling fine no, reporting no symptoms of anxiety or depression. Pt states she does not know that the medication was helpful in the past. Pt denies being suicidal. Current Cognitive/Mental Status: Pt awake, answering questions appropriately, making eye contact. Pt did not elaborate on most things but did answer questions. Pt quite tired at this time and SW woke her up when entered room to speak w/her. Patient's Identified Concerns: Pt does plan to continue to follow up w/[facility] for substance abuse. Also, she has no insurance, SW did encourage her to complete the Medicaid application or call to get an application started. Interventions: SW gave pt resources since she is self pay, including Medicaid application and number for JFS to apply, information on Nely Burgos, RACHAEL assist program, [employer], 211, food pantries, dental clinics, and prescription assistance programs. Pt plans to follow up w/[facility] after this hospitalization. Pt does not have insurance at present so additional resources in regard to pt's substance abuse is limited. Pt following up w/[facility] is the most appropriated course of action for this pt. Plan: Pt plans to return home w/boyfriend at discharge, and follow up w/[facility]. SW let pt know that SW remains available for any additional social service needs. Otherwise, no further social service needs anticipated at this time. TALI Carrero
[2019-05-12] MEDS: Ondansetron 4 MG/2 ML Vial IV (15:41)
[2019-05-12] MEDS: 0.9% NaCl Peripheral Flush Adult/Peds IV (15:41)
[2019-05-12] MEDS: Methocarbamol 750 MG Tablet PO ×2 (16:13→22:15)
[2019-05-12] MEDS: Ibuprofen 600 MG Tablet PO ×2 (16:13→22:15)
--- NOTE | 2019-05-12 16:22 | PCM.PROGNOTE ---
Patient Problems: Active and Suspected Problems (Last Updated 05/11/19 @ 03:45 by Ross Stern MD) Narcotic withdrawal (Acute) Subjective: She was seen and examined today, she remains calm and has not had placed back on Precedex since yesterday. She appears stable for transfer from the ICU to the floor today. Talk with social insurance analyst, patient does not have any insurance presently and I had social insurance analyst call [facility] she is active with [facility], but they are not able to set up an appointment with her till next week to talk about Subutex. - Physical Exam General: Alert, Oriented x3, Cooperative HEENT: Atraumatic, PERRLA, EOMI, Normocephalic Oral: Moist Mucosa Neck: Supple, No JVD, Negative Carotid Bruits Lungs: Clear to auscultation, Normal air movement Cardiovascular: Regular rate, No murmurs Abdomen: Bowel Sounds Present, Soft, Non Tender, Non-Distended Extremities: No clubbing, No cyanosis, No edema, Capillary Refill Less than 3 Seconds Skin: No rashes, No breakdown Musculoskeletal: No Tenderness to Palpation of Joints or Extremities Neurological: Cranial nerves II-XII grossly intact, Neuro grossly intact, Sensory exam intact to light touch and pain, Coordination normal Psych/Mental Status: Normal Affect, Appropriate, Alert and oriented to time, place, person, mood and affect Vital Signs Temp Pulse Resp BP Pulse Ox 98.4 F 66 16 118/68 97 05/12/19 15:22 05/12/19 15:22 05/12/19 15:22 05/12/19 15:22 05/12/19 15:22 Oxygen Delivery Method Room Air Weight: 72 kg Body Mass Index (BMI) 23.1 Intake and Output for Last 24 Hours 05/10/19 05/11/19 05/12/19 23:59 23:59 23:59 Intake Total 1502.74 / 1838.49 556.50 / 556.50 Output Total 725 / 1025 500 / 500 Balance 777.74 / 813.49 56.50 / 56.50 Laboratory Tests Past 24 Hrs 05/12/19 06:00 Sodium 144 Potassium 3.8 Chloride 111 H Carbon Dioxide 25.0 Anion Gap 8 BUN 18 Creatinine 0.73 Estim Creat Clear Calc 114.55 Est GFR (MDRD) Af Amer 118 Est GFR (MDRD) Non-Af 98 BUN/Creatinine Ratio 24.7 H Glucose 80 Calcium 8.3 L Total Bilirubin 1.20 H AST 277 H ALT 174 H Alkaline Phosphatase 80 Total Protein 6.7 Albumin 3.3 Globulin 3.4 Albumin/Globulin Ratio 1.0 Medical Necessity - Tobacco Use Smoking Status: Current every day smoker Tobacco Use: Cigarettes Assessment/Plan All Active Problems (Last Updated 05/11/19 @ 03:45 by Ross Stern MD) Narcotic withdrawal (Acute) #1 acute narcotic withdrawal-continue present meds, patient will be transferred to [facility] #2 fentanyl addiction-patient will have to follow-up with [facility] after she is discharged #3 toxic encephalopathy-resolved #4 history of hepatitis C Code Visit Inpatient E&M: 06010 Subs Hosp L2
[2019-05-12] MEDS: hydrOXYzine PAM 25 MG Capsule 50 MG PO (20:53)
[2019-05-12] MEDS: cloNIDine HCl 0.1 MG Tablet PO (20:54)
[2019-05-13] MEDS: Buprenorphine HCl 2 MG TAB.SUBL SL ×2 (01:30→09:06)
[2019-05-13 01:31] VITALS: BP 94/54; PULSE 61; RESP 16; TEMP 37.1; O2SAT 98
[2019-05-13] MEDS: hydrOXYzine PAM 25 MG Capsule 50 MG PO ×2 (03:00→14:52)
[2019-05-13] MEDS: Methocarbamol 750 MG Tablet PO ×2 (09:16→14:52)
[2019-05-13] MEDS: Ondansetron ODT 4 MG Tablet 8 MG PO (09:21)
[2019-05-13 09:30] VITALS: BP 100/60; PULSE 60; RESP 18; TEMP 37.1; O2SAT 97
[2019-05-13] MEDS: cloNIDine HCl 0.1 MG Tablet PO (14:52)
[2019-05-13 14:55] VITALS: BP 107/66; PULSE 61; RESP 18; TEMP 36.7; O2SAT 96
--- NOTE | 2019-05-13 15:01 | DCINST_ITS ---
- Discharge Diagnoses Current Active Problems: Current Active and Chronic Problems (Last Updated 05/11/19 @ 03:45 by Ross Stern MD) Narcotic withdrawal (Acute) You will use the following diet at home:: No restrictions Your food should be the consistency of: Regular Your liquids should be the consistency of: Regular/Thin Discharge Activity: Return to Normal Activity Allergies/Adverse Reactions: Allergies No Known Allergies Allergy (Verified 05/11/19 00:27) Medications to take at Discharge ALPRAZolam [Xanax] 1 mg PO TID PRN PRN #12 tab 05/13/19 The following prescriptions were given: ALPRAZolam [Xanax] 1 mg PO TID PRN PRN #12 tab PRN Reason: Anxiety Transmission Status: Received by JOSE SALGADO [facility] Primary Care Physician: Regis Doctor,Out of [NON-STAFF] - Test Results: Test results from this visit will be discussed in further detail at your follow- up appointment, if applicable. Please Follow Up With: [facility]
--- NOTE | 2019-05-13 18:22 | DS.PCM_ITS ---
Discharge Date and Diagnosis Date of Admission: 05/11/19 Date of Discharge: 05/13/19 - Primary Discharge Diagnosis 1 acute narcotic withdrawal #2 fentanyl addiction #3 toxic encephalopathy Hospital Course and Treatment Operations: None Procedures: None Summary of Care Provided: The patient is a 34 year old F at [facility] with a chief complaint of undergoing narcotic withdrawal. Patient had been using fentanyl daily for approximately 2 months, her last use had been 2 days prior and she complained of nausea and vomiting for 2 days since she stopped fentanyl. Patient was administered IV fluids Phenergan Toradol and Bentyl in the emergency room, labs were notable for elevated transaminases. Tox screen showed positive for benzodiazepines which she had obtained from a friend for use during her withdrawal. Patient was admitted to [facility], shortly after admission, patient became combative and agitated, patient received IV Ativan, Haldol, Geodon, and Ativan again but had to be transferred into the intensive care unit where Precedex was started. She was seen in consultation by critical care. She stabilized in ICU was taken off Precedex, she did not require further IV sedation and was placed on withdrawal protocol medications. She was subsequently moved out to [facility]. On [facility], she was seen by criminal justice social worker to verify that she was active with [facility] and an appointment was made at [facility] for the patient during the week of May 14, 2019. On 05/13/2019, patient was seen and examined: On examination she appeared in good health and spirits. Vital signs as documented. Skin warm and dry and without overt rashes. Neck without JVD. Lungs clear. Heart exam notable for regular rhythm, normal sounds and absence of murmurs, rubs or gallops. Abdomen unremarkable and without evidence of organomegaly, masses, or abdominal aortic enlargement. Extremities nonedematous. Neuro: Cranial nerves II through XII are grossly intact, no focal motor deficits were noted, sensation to light touch and pinprick is intact. Psych: Patient is alert and oriented x3, she does not appear anxious or depressed Patient was felt to be stable for discharge on 05/13/2019, I talked with her and her significant other prior to discharge and told her that I would write for a small amount of Xanax to take for any withdrawal symptoms since I could not prescribe Subutex. Patient understood this. She was discharged in stable condition on 05/13/2019. - Physical Exam Vital Signs Temp Pulse Resp BP Pulse Ox 98.0 F 61 18 107/66 96 05/13/19 14:55 05/13/19 14:55 05/13/19 14:55 05/13/19 14:55 05/13/19 14:55 Oxygen Delivery Method Room Air Weight: 67.2 kg Body Mass Index (BMI) 23.1 Intake and Output for Last 24 Hours 05/11/19 05/12/19 05/13/19 23:59 23:59 23:59 Intake Total 1502.74 / 1838.49 906.50 / 1346.50 920 / 920 Output Total 725 / 1025 500 / 500 Balance 777.74 / 813.49 406.50 / 846.50 920 / 920 Discharge Activity: Return to Normal Activity Home Medications: Medications to take at Discharge ALPRAZolam [Xanax] 1 mg PO TID PRN PRN #12 tab 05/13/19 Following Prescrptions Were Given to Patient: ALPRAZolam [Xanax] 1 mg PO TID PRN PRN #12 tab PRN Reason: Anxiety Transmission Status: Received by JOSE JUARES-[address] Primary Care Physician: Regis Doctor,Out of [NON-STAFF] - Please Follow Up With: [facility] Disposition: Home Minutes spent on discharge:: 31 Patient Condition:: Stable Medical Necessity - Tobacco Use Smoking Status: Current every day smoker Tobacco Use: Cigarettes Meaningful Use Info Meaningful Use Diagnoses (Choose all that apply): None applicable Code Visit Inpatient E&M: 02035 Disch Hosp
== END 2019-05-13 15:15 | disposition home or self-care (01) | DRG 896 ==
LOC: ED 02:55 → PCU 05:38 → ICU 06:37 → MS3 05-12 15:12
PROVIDERS: Internal Medicine Critical Care Medicine; Admitting Provider Hospitalist; Emergency Provider Emergency Medicine; Referring Provider Hospitalist; Visit Provider Internal Medicine
DX: F11.23 Opioid dependence with withdrawal (principal); G92 Toxic encephalopathy; F17.210 Nicotine dependence, cigarettes, uncomplicated; B19.20 Unspecified viral hepatitis C without hepatic coma; Z78.1 Physical restraint status
CPT/HCPCS: 80053; 80307; 80320; 82962; 85025; 99284; 99406; J7030; J7050; A4216; G0480; J2405; J3486

== ENCOUNTER 2019-05-25 17:29 | Emergency (ER) | payer SELFPAY ==
[2019-05-11 03:35] VITALS: BMI 23.1
[2019-05-25 17:31] VITALS: BP 126/66; PULSE 102; RESP 20; TEMP 36.7; O2SAT 97; BMI 21.5
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
[2019-05-25] MEDS: Diphth,Pertuss(Acell),Tet Vac 0.5 ML Vial IM (18:56)
[2019-05-25] MEDS: Naproxen 500 MG Tablet PO (18:56)
[2019-05-25] MEDS: Amox/Clavulanate 875 MG Tablet PO (18:56)
[2019-05-25 19:13] VITALS: PULSE 81; RESP 16; O2SAT 99
--- NOTE | 2019-05-25 19:14 | ED.RN ---
THIS NURSE REVIEWED D/C INSTRUCTIONS WITH PT. PT VERBALIZED UNDERSTANDING OF INSTRUCTIONS. PT DENIES FURTHER NEEDS OR QUESTIONS AT THIS TIME. PT AMBULATES FROM ROOM ON OWN WITHOUT ASSISTANCE FROM STAFF
== END 2019-05-25 19:14 | disposition home or self-care (01) ==
PROVIDERS: Emergency Provider Emergency Medicine
DX: S61.250A Open bite of right index finger without damage to nail, initial encounter (principal); Y93.89 Activity, other specified; Y04.1XXA Assault by human bite, initial encounter; Y92.238 Other place in hospital as the place of occurrence of the external cause; Z72.0 Tobacco use
CPT/HCPCS: 90471; 90715; 99283